=== PATIENT | female | born 1990 ===

== ENCOUNTER 2019-01-11 14:51 | Emergency (ER) | payer MEDICAID, OTHER ==
[2019-01-11 15:11] VITALS: RESP 18
[2019-01-11 15:24] VITALS: TEMP 97.8; O2SAT 100
--- NOTE | 2019-01-11 16:36 | ED PDOC ---
HPI: Headache Time Seen by Provider: 01/11/19 16:02 Chief Complaint (Nursing): Headache Chief Complaint (Provider): Headache History Per: Patient History/Exam Limitations: no limitations Onset/Duration Of Symptoms: Days (x4) Current Symptoms Are (Timing): Still Present Quality: Aching Associated Symptoms: Photophobia. denies: Nausea, Vomiting Additional Complaint(s): Roula Pryor is a 28 year old female, with a past medical history of asthma, who presents to the emergency department complaining of a headache ongoing for x4 days associated with photosensitivity and phonophobia. Patient states pain is localized to the back of the head and describes it as an aching pain, she rates it a 8-9/10; headache is worse in the morning. She took Aleve at 09:00 this morning with no improvement. No history of headaches reported. Patient also reports a throat pain but denies any fever, chills, neck pain/stiffness, nausea, vomiting, cough, chest pain, shortness of breath, dizziness, visual changes, sick contacts or recent travel. No further medical complaints. PMD: Dr. Rodriguez Past Medical History Reviewed: Historical Data, Nursing Documentation, Vital Signs Vital Signs: Last Vital Signs Temp 97.8 F 01/11/19 15:17 Pulse 81 01/11/19 15:17 Resp 18 01/11/19 15:17 BP 118/78 01/11/19 15:17 Pulse Ox 100 01/11/19 15:17 - Medical History PMH: Asthma - Surgical History Surgical History: Tonsillectomy Other surgeries: ORIF of foot - Family History Family History: States: Unknown Family Hx - Home Medications Home Medications: Ambulatory Orders Medication Instructions Recorded Albuterol 2.5 mg INH 08/02/14 Albuterol HFA [Ventolin HFA 90 2 puff IH [id number] #0 puff 08/02/14 mcg/actuation (8 g)] RX: Prednisone 2 tab PO DAILY #10 tab 08/02/14 RX: Naproxen 500 mg PO BID PRN #20 tab 01/11/19 - Allergies Allergies/Adverse Reactions: Allergies Allergy/AdvReac Type Severity Reaction Status Date / Time No Known Allergies Allergy Unverified 01/11/19 15:16 Review of Systems ROS Statement: Except As Marked, All Systems Reviewed And Found Negative Constitutional: Negative for: Fever, Chills Cardiovascular: Negative for: Chest Pain Respiratory: Negative for: Cough, Shortness of Breath Gastrointestinal: Negative for: Nausea, Vomiting Neurological: Positive for: Headache. Negative for: Dizziness Physical Exam - Reviewed Nursing Documentation Reviewed: Yes Vital Signs Reviewed: Yes - Physical Exam Comments: GENERAL APPEARANCE: Patient is awake, alert, oriented x 3, in no acute distress. Resting comfortably. SKIN: Warm, dry; (-) cyanosis; (-) rash. HEAD: (-) scalp swelling or tenderness, (-) temporal artery tenderness. EYES: (-) conjunctival injection ENMT: Pharynx: clear, uvula midline (+) faint erythema, (-) hypertrophy, (-) exudate. (-) sinus tenderness; mucous membranes are moist. TMs (-) bulging, (-) erythema. (-) sinus tenderness NECK: Supple, FROM (-) tenderness, (-) stiffness, (-) meningismus, (-) lymphadenopathy. CHEST AND RESPIRATORY: (-) rales, (-) rhonchi, (-) wheezes; breath sounds equal bilaterally. Respirations even and nonlabored. HEART AND CARDIOVASCULAR: (-) irregularity ABDOMEN AND GI: Soft; (-) tenderness. EXTREMITIES: (-) deformity. NEURO AND PSYCH: Mental status as above. 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 Strength and sensation symmetric. Gait: steady. Speech: clear. Cerebellar tests normal. - Laboratory Results Urine POC: Negative - ECG O2 Sat by Pulse Oximetry: 100 (RA) Pulse Ox Interpretation: Normal Medical Decision Making Medical Decision Making: Time: 16:05 Initial Impression: Headache, to consider migraine;Throat pain Initial Plan: --Head w/o contrast [CT] --Urine --Tylenol 325mg tab 650 mg PO --Throat culture --Rapid Strep Group A Antigen --Reevaluation Date of service: 01/11/2019 PROCEDURE: CT HEAD WITHOUT CONTRAST. HISTORY: Palpitations and headache COMPARISON: None available. TECHNIQUE: Axial computed tomography images were obtained through the head/brain without intravenous contrast. Supplemental Coronal and Sagittal projections created and reviewed. Radiation dose: Total exam DLP = 714.74 mGy-cm. This CT exam was performed using one or more of the following dose reduction techniques: Automated exposure control, adjustment of the mA and/or kV according to patient size, and/or use of iterative reconstruction technique. FINDINGS: HEMORRHAGE: No intracranial hemorrhage. BRAIN: No mass effect or edema. No atrophy or chronic microvascular ischemic changes. VENTRICLES: Unremarkable. No hydrocephalus. CALVARIUM: Unremarkable. PARANASAL SINUSES: Unremarkable as visualized. No significant inflammatory changes. MASTOID AIR CELLS: Unremarkable as visualized. No inflammatory changes. OTHER FINDINGS: None. MPRESSION: No acute intracranial abnormalities. No significant findings to account for the clinical presentation. 1800 Rapid Strep: negative. Toradol and Reglan IM ordered. Benadryl PO ordered. 185 On re-evaluation, patient reports improvement of symptoms. On exam, patient remains AAOx3, in no acute distress. Lungs clear to auscultation, cardiac RRR, repeat neuro exam shows no focal findings. Vitals stable. Lab/Diagnostic results d/w the patient in great detail. Diagnosis of acute migraine headache d/w the patient. Based on history, exam and diagnostic results, plan will be for outpatient follow up. Patient instructed to follow-up with pmd / referral provided / the clinic in 1- 2 days without fail. Advised to take medication as prescribed. Return to the emergency room at any time for any new or worsening symptoms. Patient states she fully agrees with and understands discharge instructions. States that she agrees with the plan and disposition. Verbalized and repeated discharge instructions and plan. I have given the patient opportunity to ask any additional questions. Scribe Attestation: Documented by Ishan Sequeira, acting as a scribe for Laurita Abbott PA-C. Provider Scribe Attestation: All medical record entries made by the Scribe were at my direction and personally dictated by me. I have reviewed the chart and agree that the record accurately reflects my personal performance of the history, physical exam, medical decision making, and the department course for this patient. I have also personally directed, reviewed, and agree with the discharge instructions and disposition. Disposition - Clinical Impression Clinical Impression: Migraine headache, Throat pain in adult - Patient ED Disposition Is Patient to be Admitted: No Counseled Patient/Family Regarding: Studies Performed, Diagnosis, Need For Followup, Rx Given - Disposition Referrals: Saravanan Vega MD [Medical Doctor] - primary, doctor [Other] Disposition: Routine/Home Disposition Time: 18:55 Condition: STABLE Additional Instructions: The emergency medical care you received today was directed at your acute symptoms. If you were prescribed any medication, please fill it and take as directed. It may take several days for your symptoms to resolve. Return to the Emergency Department if your symptoms worsen, do not improve, or if you have any other problems. Please contact your doctor in 2 days for re-evaluation and follow up / or call one of the physicians/clinics you have been referred to that are listed on the Patient Visit Information form that is included in your discharge packet. Bring any paperwork you were given at discharge with you along with any medications you are taking to your follow up visit. Our treatment cannot replace ongoing medical care by a primary care provider (PCP) outside of the emergency department. Prescriptions: RX: Naproxen 500 mg PO BID PRN #20 tab PRN Reason: Headache Instructions: Sore Throat in Adults, Headache, Adult, Migraine Headache (DC) Forms: Andre Phillipe (Bahamian), [facility] ED School/Work Excuse Print Language: SALVADOREAN - POA Present On Arrival: None Results - Diagnostic Imaging Results Radiology Results Head CT 01/11/19 16:19 IMPRESSION: No acute intracranial abnormalities. No significant findings to account for the clinical presentation. - Lab Results Lab Results: 01/11/19 17:00 Grp A Beta Strep Ag Negative
--- NOTE | 2019-01-11 17:45 | CT ---
Date of service: 01/11/2019 PROCEDURE: CT HEAD WITHOUT CONTRAST. HISTORY: Palpitations and headache COMPARISON: None available. TECHNIQUE: Axial computed tomography images were obtained through the head/brain without intravenous contrast. Supplemental Coronal and Sagittal projections created and reviewed. Radiation dose: Total exam DLP = 714.74 mGy-cm. This CT exam was performed using one or more of the following dose reduction techniques: Automated exposure control, adjustment of the mA and/or kV according to patient size, and/or use of iterative reconstruction technique. FINDINGS: HEMORRHAGE: No intracranial hemorrhage. BRAIN: No mass effect or edema. No atrophy or chronic microvascular ischemic changes. VENTRICLES: Unremarkable. No hydrocephalus. CALVARIUM: Unremarkable. PARANASAL SINUSES: Unremarkable as visualized. No significant inflammatory changes. MASTOID AIR CELLS: Unremarkable as visualized. No inflammatory changes. OTHER FINDINGS: None. IMPRESSION: No acute intracranial abnormalities. No significant findings to account for the clinical presentation.
[2019-01-11 19:18] VITALS: BP 110/70; PULSE 77
== END 2019-01-11 19:14 | disposition home or self-care (01) ==
LOC: H.ER 14:51
DX: G43.909 Migraine, unspecified, not intractable, without status migrainosus (principal); J02.9 Acute pharyngitis, unspecified
CPT/HCPCS: 70450; 81025; 87070; 87430; 96372; 99285; J1885; J2765